=== PATIENT | male | born 1970 | race Caucasian/White ===

== ENCOUNTER 2018-11-08 18:20 | Observation (INO) ==
[2018-11-08] MEDS ORDERED: Hydrocortisone 100 MG/60 ML ENEMA RC ONE (18:40)
[2018-11-08] MEDS ORDERED: Hydrocortisone Sodium Succ 100 MG/2 ML VIAL IVP ONE (18:41)
[2018-11-08] MEDS ORDERED: 0.9 % Sodium Chloride 1,000 ML IVC ONE (18:44)
[2018-11-08 18:47] LABS: Basophils # 0.1 K/mcL (0.0-0.2); Basophils % 0.4 %; Eosinophils % 0.2 %; Hematocrit 52.2 % (37.5-50.1); Hemoglobin 17.6 g/dL (12.9-16.9); Immature Granulocytes % 0.6 % (0-4); Lymphocytes # 0.5 K/mcL (0.6-4.6); Lymphocytes % 3.6 %; Mean Corpuscular HGB Conc 33.7 g/dL (31.6-35.5); Mean Corpuscular Hemoglobin 31.2 pg (28.0-33.3); Mean Corpuscular Volume 92.4 fL (83.0-100.0); Mean Platelet Volume 9.9 fL (9.4-12.4); Monocytes % 6.5 %; Neutrophils # 11.5 K/mcL (1.6-8.9); Platelet Count 217 K/mcL (140-400); Red Blood Count 5.65 M/mcL (4.19-5.50); Red Cell Distribution Width 12.9 % (11.5-14.5); Segmented Neutrophils % 88.7 %
--- NOTE | 2018-11-08 18:52 | Emergency Department Note ---
Disposition Clinical Impression: Addisonian crisis, Fever, Diarrhea Disposition: Admitted As Inpatient Condition: Good Time of Disposition: 19:30 General Adult HPI - General Chief complaint: ED General Medical Stated complaint: " yamil's crisis" Time Seen by Provider: 11/08/18 18:30 Source: patient Mode of arrival: ambulatory Limitations: no limitations Nursing Notes Reviewed: Yes Vital Signs Reviewed: Yes - History of Present Illness HPI Narrative: Patient presents with weakness nausea and diarrhea. He thinks he may be having an addisonian crisis. He is had this happen once before and feels like this was happening. He denies any fevers says he feels chilled no shortness of breath or chest pain. He indicates he had some trouble urinating today as well. Onset (ago): day(s) (1) Location: abdomen Radiation: non-radiation Pain Scale: 4 Quality: other (Cramping) Consistency: intermittent Improves with: nothing Worsens with: nothing Associated symptoms: Reports: nausea/vomiting Treatments Prior to Arrival: other (Zofran) - Related Data Home Medications Medication Instructions Recorded Confirmed PredniSONE 7.5 mg PO BID 07/15/16 11/08/18 Synthroid 112 mcg PO Q5D 07/15/16 Vitamin B-12 1,000 mcg PO DAILY 07/15/16 11/08/18 Vitamin D 1,000 units PO DAILY 07/15/16 11/08/18 Fludrocortisone Acetate [Florinef] 0.1 mg PO QWEEK 11/08/18 11/08/18 Fludrocortisone Acetate [Florinef] 0.2 mg PO Q6D 11/08/18 11/08/18 Levothyroxine [Synthroid] 100 mcg PO Q2D 11/08/18 11/08/18 Ondansetron HCl [Zofran] 4 mg PO Q4HR PRN 11/08/18 11/08/18 Allergies Allergy/AdvReac Type Severity Reaction Status Date / Time No Known Allergies Allergy Verified 11/08/18 18:26 All systems ED: reviewed and negative except as stated. Review of Systems: As Per HPI Constitutional: Denies: fever, chills, weakness, weight change Eyes: Denies: eye pain, eye discharge, vision change ENT ED: Denies: ear pain, throat pain, dental pain, hearing loss, epistaxis, congestion, dysphagia Cardiovascular: Denies: chest pain, palpitations, dyspnea on exertion, edema, syncope Respiratory: Denies: cough, dyspnea, wheezes, hemoptysis, stridor Gastrointestinal: Reports: as per HPI, abdominal pain, nausea, diarrhea Genitourinary: Denies: urgency, dysuria, frequency, hematuria Musculoskeletal: Denies: back pain, neck pain, arthralgia, myalgia Integumentary: Denies: rash, abrasion, lesions Neurological: Denies: headache, weakness, numbness, paresthesias, confusion, abnormal gait, vertigo Psychiatric: Denies: anxiety, depression, suicidal thoughts, homicidal thoughts, auditory hallucinations, visual hallucinations Endocrine: Denies: fatigue Hematological/Lymphatic: Denies: easy bleeding, easy bruising Allergic/Immunologic: Denies: facial swelling, urticaria Past Medical History - Past Medical History Attestation: Yes The following information was validated with the patient. Source: patient, nursing notes reviewed Medical history: Reports: thyroid disease, other Psychiatric history: Reports: no psych history - Social History Smoking Status: Never smoker Smokeless Tobacco Status: No Alcohol use: Reports: none Drug use: Reports: none Physical Exam - General Limitations: no limitations General appearance: alert - Head Head exam: atraumatic, normocephalic, normal inspection - Eye Eye exam: Present: normal appearance, PERRL, EOMI - ENT ENT exam: normal exam, normal oropharynx, mucous membranes moist - Neck Neck exam: Present: normal inspection, full ROM, trachea midline - Chest Chest inspection: Present: normal inspection, symmetric chest wall rise - Respiratory Respiratory exam: Present: normal lung sounds bilaterally - Cardiovascular Cardiovascular exam: Present: regular rate, normal rhythm, normal heart sounds - Abdominal Exam Abdominal exam: Present: soft, normal bowel sounds - Extremities Exam Extremities exam: Present: normal inspection, full ROM. Absent: tenderness, pedal edema - Back Exam Back exam: Present: normal inspection, full ROM. Absent: tenderness - Neurological Exam Neurological exam: Present: alert, oriented X3 - Psychiatric Psychiatric exam: Present: normal affect, normal mood - Skin Skin exam: Present: warm, dry, intact, normal color Course Vital Signs Temperature 101.8 F H 11/08/18 18:21 Pulse Rate 118 11/08/18 18:21 Respiratory Rate 17 11/08/18 18:21 Blood Pressure 124/63 11/08/18 18:21 O2 Sat by Pulse Oximetry 94 11/08/18 18:21 Temperature 101.8 F H 11/08/18 18:21 Pulse Rate 118 11/08/18 18:21 Respiratory Rate 17 11/08/18 18:21 Blood Pressure 124/63 11/08/18 18:21 O2 Sat by Pulse Oximetry 94 11/08/18 18:21 Oxygen Delivery Oxygen Delivery Room Air Medical Decision Making - MDM Narrative Medical decision making narrative: I reviewed the patient's medication list Case is discussed with Dr. King who is graciously acepted the patient to admit the patient hospital - Lab Data Lab results reviewed: Yes I reviewed the patient's lab results.
[2018-11-08 18:53] LABS: Monocytes # 0.9 K/mcL (0.0-1.3)
[2018-11-08 19:07] LABS: Alanine Aminotransferase 16 Units/L (7-52); Albumin 4.1 g/dL (3.5-5.7); Albumin/Globulin Ratio 1.5 (1.1-2.2); Alkaline Phosphatase 61 Units/L (34-104); Aspartate Amino Transferase 13 Units/L (13-39); BUN/Creatinine Ratio 14 (6-26); Bilirubin,Total 0.9 mg/dL (0.3-1.0); Blood Urea Nitrogen 18 mg/dL (6-20); Carbon Dioxide 26 mEq/L (23-29); Chloride 101 mEq/L (98-107); Globulin 2.8 g/dL (2.4-3.5); Glucose 117 mg/dL (70-105); Osmolality,Calculated 287 (280-300); Potassium 3.6 mEq/L (3.5-5.1); Sodium 137 mEq/L (136-145); Total Protein 6.9 g/dL (6.4-8.9); eGFR For Non-African Americans 59 (> 60)
[2018-11-08 19:46] LABS: Bilirubin,Urine Negative (Negative); Blood,Urine Trace-intact (Negative); Clarity,Urine Clear (Clear); Color,Urine Yellow (Yellow); Glucose,Urine (UA) Normal (Normal); Ketones,Urine Negative (Negative); Leukocyte Esterase,Urine Negative (Negative); Nitrite,Urine Negative (Negative); PH,Urine 5.5 pH Units (5.0-8.0); Protein,Urine Trace mg/dL (Neg-Trace); Specific Gravity,Urine 1.025 (1.010-1.025); Urobilinogen,Urine Normal (Normal)
[2018-11-08 19:53] LABS: Hyaline Casts,Urine Few per lpf (None-Few); Mucus,Urine Moderate (Few); Squamous Epithelial Cell,Urine Few per lpf (None-Few)
[2018-11-08 19:54] LABS: Bacteria,Urine Few per hpf (None-Few); RBC,Urine 0-3 per hpf (0-3); WBC,Urine 0-3 per hpf (0-3)
[2018-11-08] MEDS ORDERED: Naloxone 0.4 MG/ML INJ IVP PRN (20:01)
[2018-11-08] MEDS ORDERED: Ondansetron ODT 4 MG TAB.RAPDIS PO PRN (20:01)
[2018-11-08] MEDS: 0.9 % Sodium Chloride 1,000 ML IVC SCH (20:43)
[2018-11-09] MEDS: Hydrocortisone Sodium Succ 100 MG/2 ML VIAL IVP SCH ×2 (03:18→09:30)
[2018-11-09] MEDS: 0.9 % Sodium Chloride 1,000 ML IVC SCH (03:26)
[2018-11-09 06:46] LABS: Basophils % 0.2 %; Hematocrit 45.9 % (37.5-50.1); Hemoglobin 15.4 g/dL (12.9-16.9); Immature Granulocytes % 0.6 % (0-4); Lymphocytes # 0.3 K/mcL (0.6-4.6); Lymphocytes % 3.7 %; Mean Corpuscular HGB Conc 33.6 g/dL (31.6-35.5); Mean Corpuscular Hemoglobin 31.4 pg (28.0-33.3); Mean Corpuscular Volume 93.5 fL (83.0-100.0); Mean Platelet Volume 10.1 fL (9.4-12.4); Monocytes # 0.4 K/mcL (0.0-1.3); Monocytes % 4.9 %; Neutrophils # 8.1 K/mcL (1.6-8.9); Platelet Count 183 K/mcL (140-400); Red Blood Count 4.91 M/mcL (4.19-5.50); Red Cell Distribution Width 12.9 % (11.5-14.5); Segmented Neutrophils % 90.6 %
[2018-11-09 07:17] LABS: Alanine Aminotransferase 13 Units/L (7-52); Albumin 3.5 g/dL (3.5-5.7); Albumin/Globulin Ratio 1.5 (1.1-2.2); Alkaline Phosphatase 48 Units/L (34-104); Aspartate Amino Transferase 12 Units/L (13-39); BUN/Creatinine Ratio 13 (6-26); Bilirubin,Total 1.1 mg/dL (0.3-1.0); Blood Urea Nitrogen 13 mg/dL (6-20); Calcium 8.2 mg/dL (8.6-10.3); Carbon Dioxide 25 mEq/L (23-29); Chloride 106 mEq/L (98-107); Globulin 2.3 g/dL (2.4-3.5); Glucose 106 mg/dL (70-105); Osmolality,Calculated 287 (280-300); Potassium 3.6 mEq/L (3.5-5.1); Sodium 138 mEq/L (136-145); Total Protein 5.8 g/dL (6.4-8.9); eGFR For Non-African Americans > 60 (> 60)
[2018-11-09] MEDS ORDERED: Cyanocobalamin (B-12) 1,000 MCG TABLET PO SCH (09:00)
[2018-11-09] MEDS ORDERED: Cholecalciferol (D-3) 1,000 UNIT TABLET PO SCH (09:00)
[2018-11-09 10:30] VITALS: BP 129/81
--- NOTE | 2018-11-09 11:29 | Internal Med History&Physical ---
Date of Encounter: 11/09/18 Time of Encounter: 10:55 Assessment and Plan (1) Acute gastroenteritis Current visit: Yes Status: Acute Likely viral etiology. He states he feels improved. He has tolerated adequate amount of oral food and fluid intake. (2) Azotemia Current visit: Yes Status: Acute Creatinine was elevated at 1.30 emergency room. It has decreased to 1.02 on follow-up labs this morning. (3) Hypothyroidism Current visit: Yes Status: Acute TSH was normal at 0.842 in emergency room. Continue present dose Synthroid. Qualifiers: Hypothyroidism type: unspecified Qualified Code(s): E03.9 - Hypothyroidism, unspecified (4) Addisons disease Current visit: Yes Status: Chronic He was given additional steroids on admission. I do not feel he has addisonian crisis. I suspect he has viral gastroenteritis. He will resume prednisone orally. He has adjusted his prednisone dose in the past based on symptoms. 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 Wood is a 47 year old male who came to emergency room stating he had several episodes of nonbloody diarrhea earlier the day of admission with increasing weakness. He had nausea but no vomiting. There was minimal cough associated. He was concerned he was having addisonian crisis so came to emergency room. He was evaluated and was found to have leukocytosis with left shift on differential. He had fever of 101.8. He was admitted to [facility] floor for ongoing care needs. He states he feels significant improved at present time and stable for discharge home. He denies close contacts with similar symptoms. He denies significant pain. GI history is negative for known disorders of his liver gallbladder or exocrine pancreas. 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 He is followed by corrugator operator in [place]. He has hypothyroidism and borderline hyperlipidemia. He denies diabetes. Past Med Surg Social Fam HX - Past Medical History Medical history: thyroid disease, other Additional medical history: Reedley Disease Psychiatric history: no psych history - Past Surgical History Additional surgical history: Heart murmur as child. kidney stone. Oseomalatia resolved - Social History Smoking Status: Never smoker Smokeless Tobacco Status: No Alcohol use: none Drug use: none Internal Medicine - H&P: Meds PredniSONE 7.5 mg PO BID 07/15/16 [History] Synthroid 112 mcg PO Q5D 07/15/16 [History] Vitamin B-12 1,000 mcg PO DAILY 07/15/16 [History] Vitamin D 1,000 units PO DAILY 07/15/16 [History] Fludrocortisone Acetate [Florinef] 0.1 mg PO QWEEK 11/08/18 [History] Fludrocortisone Acetate [Florinef] 0.2 mg PO Q6D 11/08/18 [History] Levothyroxine [Synthroid] 100 mcg PO Q2D 11/08/18 [History] Ondansetron HCl [Zofran] 4 mg PO Q4HR PRN 11/08/18 [History] Allergy/AdvReac Type Severity Reaction Status Date / Time No Known Allergies Allergy Verified 11/08/18 18:26 All Systems PM: A 10-system review of systems was performed and is negative for pertinent findings except as documented above in the HPI. Review of systems: Gen.: He states his weight has been stable for several months Cardiovascular: He denies hypertension [place] heart failure angina DVT or pulmonary embolus Respiratory: He is a lifelong nonsmoker and denies chronic lung disease GI: As per history of present illness : He has had multiple kidney stones with most recent one in 2011. He denies other kidney bladder prostate disorders Neurologic: He has had occasional near syncopal episodes which he feels were possibly due to hypovolemia. He denies large distribution strokes or seizures. Endocrine: As per history of present illness Hematology/oncology: He denies blood disorders cancers or anemia Psychiatric: He denies anxiety depression or other mental health issues [place] skeletal: He was told he had osteomalacia several years ago. He denies other bone joint or muscle disorders. - Constitutional Vitals: Temp Pulse Resp BP Pulse Ox 98.5 F 83 16 129/81 95 11/09/18 10:29 11/09/18 10:29 11/09/18 10:29 11/09/18 10:29 11/09/18 10:29 Exam: Gen.: He is a well-developed well-nourished male sitting the side of bed who appears in no acute distress at present time HEENT: Head is atraumatic and normocephalic. Eyes: EOMI. There is no scleral icterus. Mouth: Mucosa is moist. Neck: Supple and nontender. There is no thyromegaly or adenopathy noted. Heart: Regular without murmurs gallops or ectopics Lungs: No wheezes or crackles are heard. Abdomen: Soft and nontender. No masses or guarding are noted. Extremities: There is no cyanosis edema or clubbing noted. Dorsalis pedis and posterior tibial pulses are 1-2 over 2 bilaterally. Neurologic: Mental status: He is talkative and a good historian. Cranial nerves: Smile is symmetric. Forehead wrinkles bilaterally. Tongue protrudes midline. EOMI. Motor: There is no pronator drift. Cerebellar: Finger to nose is intact bilaterally. Skin: Warm and dry Internal Med - H&P Results - Labs CBC & Chem 7: 11/09/18 05:10 11/09/18 05:10 Labs: Short CBC 11/08/18 11/09/18 Range/Units 18:31 05:10 WBC 13.0 H 8.9 (4.3-11.1) K/mcL Hgb 17.6 H 15.4 D (12.9-16.9) g/dL Hct 52.2 H 45.9 (37.5-50.1) % Plt Count 217 183 (140-400) K/mcL Neutrophils # 11.5 H 8.1 (1.6-8.9) K/mcL BMP 11/08/18 11/09/18 18:31 05:10 Sodium 137 138 Potassium 3.6 3.6 Chloride 101 106 Carbon Dioxide 26 25 BUN 18 13 Creatinine 1.30 1.02 Glucose 117 H 106 H Calcium 9.0 8.2 L Liver Function 11/08/18 11/09/18 Range/Units 18:31 05:10 Total Bilirubin 0.9 1.1 H (0.3-1.0) mg/dL AST 13 12 L (13-39) Units/L ALT 16 13 (7-52) Units/L Alkaline Phosphatase 61 48 (34-104) Units/L Albumin 4.1 3.5 (3.5-5.7) g/dL Urine 11/08/18 Range/Units 19:40 Urine Color Yellow (Yellow) Urine Clarity Clear (Clear) Urine pH 5.5 (5.0-8.0) pH Units Ur Specific [place] 1.025 (1.010-1.025) Urine Protein Trace (Neg-Trace) mg/dL Urine Glucose (UA) Normal (Normal) mg/dL
--- NOTE | 2018-11-09 11:46 | Discharge Summary ---
Orders not resulted at time of discharge: Pending orders 11/08/18 18:31 Culture,Blood [BC] Stat Date of Encounter: 11/09/18 Time of Encounter: 10:55 - Discharge Diagnosis (1) Acute gastroenteritis Priority: Primary Status: Acute (2) Azotemia Priority: Secondary Status: Acute (3) Hypothyroidism Priority: Secondary Status: Acute Qualifiers: Hypothyroidism type: unspecified Qualified Code(s): E03.9 - Hypothyroidism, unspecified (4) Addisons disease Priority: Secondary Status: Chronic Hospital course: Mr. Wood is a 47 year old male who came to emergency room stating he had several episodes of nonbloody diarrhea earlier the day of admission with increasing weakness. He had nausea but no vomiting. There was minimal cough associated. He was concerned he was having addisonian crisis so came to emergency room. He was evaluated and was found to have leukocytosis with left shift on differential. He had fever of 101.8. He was admitted to [facility] floor for ongoing care needs. Initial orders were written by the emergency room physician. I saw him on November 09 and performed a history physical and discharge. When I saw him he stated his nausea had lessened and diarrhea had essentially resolved. His temperature returned to normal the evening of November 08 and remained normal. He felt much improved and stable for discharge home which I felt was reasonable. He will continue present medications as at home and can adjust prednisone as needed as he has done in the past. He will follow with his PCP within 1 week. 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 - Time Spent with Patient Total time spent providing and/or coordinating discharge services: - Discharge Medications Prescriptions: Continue Vitamin D 1,000 units PO DAILY Vitamin B-12 1,000 mcg PO DAILY Synthroid 112 mcg PO Q5D PredniSONE 7.5 mg PO BID Fludrocortisone Acetate [Florinef] 0.2 mg PO Q6D Fludrocortisone Acetate [Florinef] 0.1 mg PO QWEEK Ondansetron HCl [Zofran] 4 mg PO Q4HR PRN PRN Reason: Nausea Levothyroxine [Synthroid] 100 mcg PO Q2D Home Medications: PredniSONE 7.5 mg PO BID 07/15/16 [History] Synthroid 112 mcg PO Q5D 07/15/16 [History] Vitamin B-12 1,000 mcg PO DAILY 12/12/16 [History] Vitamin D 1,000 units PO DAILY 07/15/16 [History] Fludrocortisone Acetate [Florinef] 0.1 mg PO QWEEK 11/08/18 [History] Fludrocortisone Acetate [Florinef] 0.2 mg PO Q6D 11/08/18 [History] Levothyroxine [Synthroid] 100 mcg PO Q2D 11/08/18 [History] Ondansetron HCl [Zofran] 4 mg PO Q4HR PRN 11/08/18 [History] Allergies/Adverse Reactions: Allergy/AdvReac Type Severity Reaction Status Date / Time No Known Allergies Allergy Verified 11/08/18 18:26 Date of admission: 11/08/18 19:31 Primary care physician: Radha Erazo CNP - Constitutional Vitals: Temp Pulse Resp BP Pulse Ox 98.5 F 83 16 129/81 95 11/09/18 10:29 11/09/18 10:29 11/09/18 10:29 11/09/18 10:29 11/09/18 10:29 - Patient Status Disposition: Home, Self-Care Condition: Good - Discharge Instructions Follow Up With: Radha Erazo CNP [Primary Care Provider] - 1 week - Diet and Activity Activity: resume usual activities as tolerated Diet: advance to your usual diet
[2018-11-10] MEDS ORDERED: Hydrocortisone Sodium Succ 100 MG/2 ML VIAL IVP SCH (03:00)
== END 2018-11-09 13:30 | disposition home or self-care (01) ==
LOC: EMEROOPIK 18:20 → INPPIK 18:20
PROVIDERS: ADMIT Internal Medicine; ATTEND Internal Medicine